=== PATIENT | female | born 1960 | race Caucasian/White ===

== ENCOUNTER → 2020-10-25 | Outpatient (CLI) | payer BC ==
[~2020-10-25] MED LIST: OMNIPAQUE 350 MG/ML, 100ML BOTTLE ONE
== END | disposition home or self-care (01) ==
LOC: CFH 06:54
PROVIDERS: ATTEND Surgery
DX: K44.9 Diaphragmatic hernia without obstruction or gangrene (principal); R92.1 Mammographic calcification found on diagnostic imaging of breast; J98.4 Other disorders of lung; M51.37 Other intervertebral disc degeneration, lumbosacral region; Z90.49 Acquired absence of other specified parts of digestive tract; Z15.09 Genetic susceptibility to other malignant neoplasm
CPT/HCPCS: 74177; 76642; 77062; 77066; Q9967; G0279